=== PATIENT | female | born 1960 | race Caucasian/White ===

== ENCOUNTER 2016-08-29 08:27 | Emergency (ER) | payer MEDICAID ==
[~2016-08-29] VITALS: Ht 152.4 cm; Wt 60.0 kg
[~2016-08-29 08:27] MED LIST: ATEN50TA PO; BISA-81 PO; BUSP30TA2 PO; DOCU-138 PO; FURO20TA4 PO; NITR-36 PO; PROT20 PO; QUET200T PO; VENL150C2 PO
[2016-08-29] MEDS ORDERED: MORPHINE SULFATE 4 MG/ML CPJ (NOT FOR IM USE) IV STA (09:38)
[2016-08-29] MEDS ORDERED: ONDANSETRON HCL 4MG/2ML VIAL IV STA (09:38)
[2016-08-29] MEDS ORDERED: SODIUM CHLORIDE 0.9% 1,000 ML IV ONE (09:38)
[2016-08-29] MEDS ORDERED: VANCOMYCIN 1 G PREMIX 200 ML IV SCH (09:45)
[2016-08-29 10:50] LABS: BASOPHILS % 0.9 % (0.0-2.0); HEMATOCRIT. 31.7 % (36.0-48.0); HEMOGLOBIN. 10.5 g/dL (12.0-16.0); LYMPHOCYTES % 11.3 % (20.0-50.0); MEAN CORPUSCULAR HEMOGLOBIN 32.5 pg (28.0-32.0); MEAN CORPUSCULAR VOLUME 98.5 fL (81.0-99.0); MEAN PLATELET VOLUME 9.2 fl (7.4-10.4); MONOCYTES % 5.7 % (2.0-8.0); NEUTROPHILS % 79.1 % (40.0-76.0); PLATELET 301 x1000/uL (130-400); RED BLOOD CELL COUNT 3.22 mill/uL (4.2-5.4); RED CELL DISTRIBUTION WIDTH 18.2 % (11.6-14.6); WHITE BLOOD COUNT 7.1 x1000/uL (4.5-11.0)
[2016-08-29 10:53] LABS: INR 1.2; PROTHROMBIN TIME 12.7 sec
[2016-08-29 10:56] LABS: ALBUMIN 2.4 g/dL (3.4-5.0); ANION GAP 11; CALCIUM 8.4 mg/dL (8.5-10.1); CARBON DIOXIDE 25 mEq/L (21-32); CHLORIDE 103 mEq/L (98-107); INDEX HEMOLYSI 1 (1-3); INDEX ICTERIC 1 (1-4); INDEX LIPEMIC 1 (1-3); UREA NITROGEN BLOOD 5 mg/dL (7-21)
[2016-08-29 11:01] LABS: ALANINE AMINOTRANSFERASE 31 IU/L (13-61); ETHANOL BLOOD < 10 mg/dL; LIPASE 177 IU/L (73-393); eGFR > 60 mL/min (>60)
[2016-08-29] MEDS ORDERED: LIDOCAINE HCL 1% 20ML VIAL (Pyxis) INJ ONE (11:36)
[2016-08-29] MEDS ORDERED: SODIUM BICARBONATE 4.2% 5 MEQ/10 ML DISP.SYRIN IV ONE (11:36)
[2016-08-29 12:04] VITALS: BP 104/72
== END 2016-08-29 13:30 | disposition home or self-care (01) ==
LOC: ER 09:50
DX: K70.31 Alcoholic cirrhosis of liver with ascites (principal); F17.210 Nicotine dependence, cigarettes, uncomplicated; M19.90 Unspecified osteoarthritis, unspecified site; Z98.890 Other specified postprocedural states; Z88.0 Allergy status to penicillin
CPT/HCPCS: 36415; 49083; 71010; 80053; 83690; 85025; 85610; 87040; 87070; 87205; 93005; 96365; 96375; 99285; G0482; J2270; J2405; J3370; J3490; Z7610; J7030

== ENCOUNTER 2016-09-08 11:01 | Emergency (ER) | payer MEDICAID ==
[~2016-09-08] VITALS: Ht 154.9 cm; Wt 51.0 kg
[2016-09-08] MEDS ORDERED: KETOROLAC 30MG/ML VIAL IV ONE (13:00)
[2016-09-08 13:20] LABS: EOSINOPHILS % 4.4 % (0.0-5.0); HEMATOCRIT. 29.8 % (36.0-48.0); HEMOGLOBIN. 9.9 g/dL (12.0-16.0); LYMPHOCYTES % 26.2 % (20.0-50.0); MEAN CORPUSCULAR HEMOGLOBIN 32.4 pg (28.0-32.0); MEAN CORPUSCULAR HGB CONC 33.2 g/dL (31.0-37.0); MEAN CORPUSCULAR VOLUME 97.5 fL (81.0-99.0); MEAN PLATELET VOLUME 8.1 fl (7.4-10.4); MONOCYTES % 6.9 % (2.0-8.0); NEUTROPHILS % 61.5 % (40.0-76.0); PLATELET 254 x1000/uL (130-400); RED BLOOD CELL COUNT 3.06 mill/uL (4.2-5.4); RED CELL DISTRIBUTION WIDTH 17.4 % (11.6-14.6); WHITE BLOOD COUNT 4.2 x1000/uL (4.5-11.0)
[2016-09-08 13:26] LABS: CHLORIDE 108 mEq/L (98-107); INDEX HEMOLYSI 1 (1-3); INDEX ICTERIC 1 (1-4); INDEX LIPEMIC 1 (1-3)
[2016-09-08 13:27] LABS: INR 1.3; PROTHROMBIN TIME 13.1 sec
[2016-09-08 13:34] LABS: ALANINE AMINOTRANSFERASE 22 IU/L (13-61); ALBUMIN 2.1 g/dL (3.4-5.0); ANION GAP 8; CARBON DIOXIDE 28 mEq/L (21-32); UREA NITROGEN BLOOD 5 mg/dL (7-21); eGFR > 60 mL/min (>60)
[2016-09-08 16:12] VITALS: BP 105/59
== END 2016-09-08 16:18 | disposition home or self-care (01) ==
LOC: ER 13:24
DX: R18.8 Other ascites (principal); M19.90 Unspecified osteoarthritis, unspecified site; F17.210 Nicotine dependence, cigarettes, uncomplicated; F10.129 Alcohol abuse with intoxication, unspecified; Z88.0 Allergy status to penicillin; Z79.899 Other long term (current) drug therapy
CPT/HCPCS: 36415; 49083; 80053; 85025; 85610; 96374; 99285; J1885; Z7610

== ENCOUNTER 2016-09-20 09:22 | Emergency (ER) | payer MEDICAID ==
[~2016-09-20] VITALS: Ht 154.9 cm; Wt 51.0 kg
[2016-09-20 10:12] LABS: BASOPHILS % 0.8 % (0.0-2.0); EOSINOPHILS % 4.8 % (0.0-5.0); HEMATOCRIT. 30.2 % (36.0-48.0); HEMOGLOBIN. 10.1 g/dL (12.0-16.0); LYMPHOCYTES % 22.9 % (20.0-50.0); MEAN CORPUSCULAR HEMOGLOBIN 31.9 pg (28.0-32.0); MEAN PLATELET VOLUME 8.2 fl (7.4-10.4); MONOCYTES % 6.8 % (2.0-8.0); NEUTROPHILS % 64.7 % (40.0-76.0); PLATELET 238 x1000/uL (130-400); RED BLOOD CELL COUNT 3.18 mill/uL (4.2-5.4); RED CELL DISTRIBUTION WIDTH 16.2 % (11.6-14.6)
[2016-09-20 10:20] LABS: INR 1.2; PROTHROMBIN TIME 12.5 sec
[2016-09-20 10:26] LABS: CARBON DIOXIDE 21 mEq/L (21-32); CHLORIDE 110 mEq/L (98-107); ETHANOL BLOOD < 10 mg/dL
[2016-09-20 10:59] LABS: CLARITY URINE CLEAR (CLEAR); COLOR URINE YELLOW (YELLOW); GLUCOSE URINE NEGATIVE (NEGATIVE); KETONES URINE NEGATIVE (NEGATIVE); LEUKOCYTE ESTERASE URINE NEGATIVE (NEGATIVE); NITRITE URINE NEGATIVE (NEGATIVE); OCCULT BLOOD URINE NEGATIVE (NEGATIVE); PROTEIN URINE NEGATIVE (NEGATIVE); SPECIFIC GRAVITY URINE 1.009 (1.005-1.030); UROBILINOGEN URINE 0.2 E.U./dL (0.2-1.0)
[2016-09-20 11:21] LABS: *AMPHETAMINES SCREEN URINE NEGATIVE (NEGATIVE); *BARBITURATES SCREEN URINE NEGATIVE (NEGATIVE); *BENZODIAZEPINES SCREEN URINE NEGATIVE (NEGATIVE); *COCAINE SCREEN URINE NEGATIVE (NEGATIVE); CANNABINOID URINE SCREEN NEGATIVE (NEGATIVE); METHADONE URINE SCREEN NEGATIVE (NEGATIVE); OPIATES URINE SCREEN NEGATIVE (NEGATIVE); PHENCYCLIDINE URINE SCREEN NEGATIVE (NEGATIVE)
[2016-09-20 14:11] VITALS: BP 127/81
[2016-09-20] MEDS ORDERED: LIDOCAINE HCL 1% 20ML VIAL (Pyxis) INJ ONE (14:39)
[2016-09-20] MEDS ORDERED: SODIUM BICARBONATE 4.2% 5 MEQ/10 ML DISP.SYRIN IV ONE (14:39)
== END 2016-09-20 14:38 | disposition home or self-care (01) ==
LOC: ER 10:22
DX: R18.8 Other ascites (principal); E87.6 Hypokalemia; Z88.0 Allergy status to penicillin; M19.90 Unspecified osteoarthritis, unspecified site; K76.9 Liver disease, unspecified; F17.200 Nicotine dependence, unspecified, uncomplicated; Z85.828 Personal history of other malignant neoplasm of skin
CPT/HCPCS: 36415; 49083; 80053; 80305; 81003; 85025; 85610; 99285; G0482; J3490; Z7610

== ENCOUNTER 2025-02-17 06:56 | Inpatient (IN) | payer MEDICAID, OTHER ==
[~2025-02-17] VITALS: Ht 162.6 cm; Wt 58.2 kg
[~2025-02-17 06:56] MED LIST changes: +EFXR15 PO; -NITR-36 PO; +NITR-82 PO; -VENL150C2 PO
[2025-02-17 07:02] VITALS: O2SAT 99
[2025-02-17 07:33] LABS: HEMATOCRIT. 34.6 % (36.0-48.0); HEMOGLOBIN. 11.7 g/dL (12.0-16.0); MEAN PLATELET VOLUME 8.7 fl (7.4-10.4); PLATELET 208 x1000/uL (130-400); RED BLOOD CELL COUNT 3.49 mill/uL (4.2-5.4); RED CELL DISTRIBUTION WIDTH 13.9 % (11.6-14.6)
[2025-02-17] MEDS: LACTATED RINGERS 1,000 ML IV SCH (07:52)
[2025-02-17 07:54] LABS: CREATININE 0.9 mg/dL (0.6-1.0)
[2025-02-17 07:55] LABS: UREA NITROGEN BLOOD 12 mg/dL (9-23)
[2025-02-17 07:57] LABS: ASPARTATE AMINOTRANSFERASE 150 IU/L (<34); BILIRUBIN TOTAL 2.4 mg/dL (0.1-1.0); PROTEIN TOTAL 7.1 g/dL (6.0-8.3)
[2025-02-17] MEDS: POTASSIUM CHLORIDE 20MEQ/PACKET PO ONE ×2 (08:57→10:37)
[2025-02-17] MEDS: KCL 20MEQ/100ML PREMIX 100 ML IV ONE (08:58)
[2025-02-17] MEDS: MORPHINE SULFATE 2 MG/ML INJ (NOT FOR IM USE) IV ONE (09:45)
[2025-02-17] MEDS: MAGNESIUM 2 G PREMIX 50 ML IV ONE (10:32)
[2025-02-17] MEDS ORDERED: IOHEXOL-300 100 ML BOTTLE ONE (11:22)
[2025-02-17] MEDS ORDERED: ACETAMINOPHEN 325MG TABLET PO PRN ×2 (11:45→12:15)
[2025-02-17] MEDS ORDERED: ONDANSETRON HCL 4MG/2ML INJ IV PRN (11:45)
[2025-02-17] MEDS ORDERED: NALOXONE HCL 0.4MG/ML VIAL IV PRN (12:15)
[2025-02-17 13:29] VITALS: BP 126/78; PULSE 88; RESP 17; TEMP 36.3068
[2025-02-17 15:28] LABS: BAND% 4.0 % (1.0-6.0); BASOPHILS % MANUAL 1.0 % (0.0-2.0); LYMPHOCYTES % MANUAL 2.0 % (20.0-60.0); MONOCYTES % MANUAL 6.0 % (2.0-8.0); NEUTROPHILS % MANUAL 87.0 % (45.0-75.0); PLATELET ESTIMATE NORMAL
[2025-02-17 16:00] VITALS: BP 144/89; PULSE 76; RESP 16; TEMP 36.4; O2SAT 100
[2025-02-17 20:00] VITALS: BP 123/76; PULSE 89; RESP 17; TEMP 36.4; O2SAT 100
[2025-02-17] MEDS: HYDROCODONE/ACETAMINOPHEN 5/325MG TABLET PO PRN (22:47)
[2025-02-18] VITALS: BP 122/80; PULSE 85; RESP 19; TEMP 36.4; O2SAT 100
[2025-02-18 04:00] VITALS: BP 116/78; PULSE 89; RESP 20; TEMP 36.5; O2SAT 99
[2025-02-18 09:16] LABS: CLARITY URINE CLOUDY (CLEAR); COLOR URINE DARK YELLOW (YELLOW); GLUCOSE URINE NEGATIVE (NEGATIVE); KETONES URINE 3+ (NEGATIVE); LEUKOCYTE ESTERASE URINE NEGATIVE (NEGATIVE); NITRITE URINE POSITIVE (NEGATIVE); OCCULT BLOOD URINE 1+ (NEGATIVE); PH URINE 6.0 (4.5-8.0); PROTEIN URINE TRACE (NEGATIVE); SPECIFIC GRAVITY URINE 1.028 (1.005-1.030); UROBILINOGEN URINE 2.0 E.U./dL (0.2-1.0)
[2025-02-18 09:28] LABS: *AMPHETAMINES SCREEN URINE PRESUMPTIVE POSITIVE (NEGATIVE); *BARBITURATES SCREEN URINE NEGATIVE (NEGATIVE); *BENZODIAZEPINES SCREEN URINE NEGATIVE (NEGATIVE); *COCAINE SCREEN URINE NEGATIVE (NEGATIVE); CANNABINOID URINE SCREEN NEGATIVE (NEGATIVE); ECSTASY MDMA SCREEN URINE NEGATIVE (NEGATIVE); METHADONE URINE SCREEN NEGATIVE (NEGATIVE); OPIATES URINE SCREEN PRESUMPTIVE POSITIVE (NEGATIVE); PHENCYCLIDINE URINE SCREEN NEGATIVE (NEGATIVE)
[2025-02-18 09:34] LABS: SQUAMOUS EPITHELIAL CELL URINE 2+ /lpf (RARE/1+)
[2025-02-18 09:36] LABS: BACTERIA URINE 3+
[2025-02-18 09:44] LABS: UREA NITROGEN BLOOD 9 mg/dL (9-23)
[2025-02-18 09:49] LABS: CREATININE 0.5 mg/dL (0.6-1.0)
[2025-02-18 10:15] LABS: HEPATITIS C AB REACTIVE (Pos) (Negative)
[2025-02-18] MEDS: ENOXAPARIN 40MG/0.4ML SYR SUBCUT SCH (10:31)
[2025-02-18 12:00] VITALS: BP 108/71; PULSE 113; RESP 16; TEMP 36.6; O2SAT 96
[2025-02-18] MEDS: CEFTRIAXONE 1GM/50ML 50ML IV SCH (15:54)
[2025-02-18 16:00] VITALS: BP 118/70; PULSE 108; RESP 16; TEMP 36.4; O2SAT 97
[2025-02-18 20:00] VITALS: BP 132/83; PULSE 98; RESP 20; TEMP 36.7; O2SAT 96
[2025-02-19] VITALS: BP 118/76; PULSE 104; RESP 20; TEMP 37; O2SAT 99
[2025-02-19 04:00] VITALS: BP 127/70; PULSE 90; RESP 18; TEMP 36.8; O2SAT 96
[2025-02-19 08:00] VITALS: BP 124/82; PULSE 98; RESP 20; TEMP 37.1; O2SAT 98
[2025-02-19] MEDS ORDERED: LEVOFLOXACIN 250MG TABLET PO SCH (11:00)
[2025-02-19 12:00] VITALS: BP 103/65; PULSE 95; RESP 18; TEMP 37.2; O2SAT 95
[2025-02-19 16:00] VITALS: BP 90/55; PULSE 102; RESP 17; TEMP 36.7; O2SAT 96
[2025-02-19 20:00] VITALS: BP 108/66; PULSE 85; RESP 22; TEMP 36.3; O2SAT 98
[2025-02-19] MEDS ORDERED: MAGNESIUM 2 G PREMIX 50 ML IV ONE ×2 (22:45→23:00)
[2025-02-19] MEDS: POTASSIUM CHLORIDE 20MEQ TABLET SR PO NR (22:57)
[2025-02-19] MEDS: MAGNESIUM 2 G PREMIX 50 ML IV NR (22:58)
[2025-02-20] VITALS (7 sets, daily range): BP systolic 88–126; BP diastolic 59–82; PULSE 80–107; RESP 18–20; TEMP 36.2–36.7; O2SAT 95–98
[2025-02-20] MEDS: HYDROCODONE/ACETAMINOPHEN 10/325MG TABLET PO PRN (18:52)
[2025-02-21 04:00] VITALS: BP 106/66; PULSE 98; RESP 19; TEMP 36.6; O2SAT 98
[2025-02-21 08:00] VITALS: BP 141/95; PULSE 99; RESP 17; TEMP 36.5; O2SAT 98
[2025-02-21] MEDS: KETOROLAC 15MG/ML VIAL IV PRN (08:51)
== END 2025-02-21 15:07 | disposition left against medical advice (07) | DRG 347 ==
LOC: ER 06:56 → 6WST 09:45 → EDBEDREQSVC 10:03 → EDBEDREQ 10:03 → EDBEDREQTM 10:03 → ENRESERV 10:20 → 6EST 02-20 08:00
PROVIDERS: ADMIT Internal Medicine; ATTEND Internal Medicine
DX: M48.56XA Collapsed vertebra, not elsewhere classified, lumbar region, initial encounter for fracture (principal); R18.8 Other ascites; S22.42XA Multiple fractures of ribs, left side, initial encounter for closed fracture; N39.0 Urinary tract infection, site not specified; K74.60 Unspecified cirrhosis of liver; E87.6 Hypokalemia; Z53.29 Procedure and treatment not carried out because of patient's decision for other reasons; F15.90 Other stimulant use, unspecified, uncomplicated; Z71.51 Drug abuse counseling and surveillance of drug abuser; Z86.73 Personal history of transient ischemic attack (TIA), and cerebral infarction without residual deficits; Z88.0 Allergy status to penicillin; Z88.8 Allergy status to other drugs, medicaments and biological substances; Z79.899 Other long term (current) drug therapy
CPT/HCPCS: 36415; 71045; 71260; 74177; 80048; 80053; 80305; 81003; 83735; 84132; 85025; 86705; 87340; 93005; 96365; 96366; 97116; 97162; 99291; J0696; J1650; J1885; J3475; J3480; Q9967